=== PATIENT | male | born 1965 | race Caucasian/White ===

== ENCOUNTER 2020-11-07 10:20 | Day surgery (SDC) | payer OTHER ==
[~2020-11-07] VITALS: Ht 185.4 cm; Wt 78.5 kg
[~2020-11-07 10:20] MED LIST: CEPH500 PO; IBUP800 PO; Norco 5-325 Ta1 EACH PO; ONDA4ODT PO
--- NOTE | 2020-11-07 13:45 | NUR ---
11/07/20 1345 Gurvinder Kohler INTRASCALILNG BLOCK COMPLETED IN THE OR WITHOUT DIFFICULTY. PATIENT TOLERATETD PROCEDURE WELL.
--- NOTE | 2020-11-07 16:52 | NUR ---
11/07/20 1652 Aliyah Cali LATE ENTRY: PT ARRVIES TO SDU AND BECOMES NAUSEATED, UNABLE TO TRANSFER TO RECLINER AT THIS TIME. HE IS MEDICATED TWICE FOR NAUSEA SEE VS RECORD FOR TIMES. PT IS STILL NAUSEATED AND RESTING. HE HAS TAKEN A FEW SIPS OF KILEY MIST. WILL CONTINUE TO MONITOR.
== END 2020-11-07 17:45 | disposition home or self-care (01) ==
LOC: ORSCSDS 10:20
PROVIDERS: Orthopaedic Surgery
PROC: 0RNJ4ZZ Release Right Shoulder Joint, Percutaneous Endoscopic Approach (ICD-10-PCS; principal; 2020-11-07 11:30)
PROC: 0LU14KZ Supplement Right Shoulder Tendon with Nonautologous Tissue Substitute, Percutaneous Endoscopic Approach (ICD-10-PCS; principal; 2020-11-07 11:30)
PROC: 0PB94ZZ Excision of Right Clavicle, Percutaneous Endoscopic Approach (ICD-10-PCS; principal; 2020-11-07 11:30)
PROC: 0LQ14ZZ Repair Right Shoulder Tendon, Percutaneous Endoscopic Approach (ICD-10-PCS; principal; 2020-11-07 11:30)
PROC: 0LS34ZZ Reposition Right Upper Arm Tendon, Percutaneous Endoscopic Approach (ICD-10-PCS; principal; 2020-11-07 11:30)
PROC: 0RUG0KZ Supplement Right Acromioclavicular Joint with Nonautologous Tissue Substitute, Open Approach (ICD-10-PCS; principal; 2020-11-07 11:30)
DX: M75.111 Incomplete rotator cuff tear or rupture of right shoulder, not specified as traumatic (principal); S43.101A Unspecified dislocation of right acromioclavicular joint, initial encounter; M19.011 Primary osteoarthritis, right shoulder; M75.21 Bicipital tendinitis, right shoulder
CPT/HCPCS: C1713; C1762; J0171; J0690; J2250; J2405; J2550; J2704; J2765; J2795; J3010; J7120